=== PATIENT | male | born 1955 | race Caucasian/White ===

== ENCOUNTER → 2018-10-20 11:34 | Outpatient (CLI) | payer MEDICARE ==
--- NOTE | 2018-10-23 15:34 | ST ---
PATIENT:RADHA JORGENSEN MEDICAL RECORD: [id number] SEX: M LOCATION:[facility] ORDER #: ADMISSION DATE: 10/20/18 AGE OF PATIENT: 63 REFERRING PHYSICIAN: INTERPRETING PHYSICIAN: RADHA SHERMAN MD DATE OF SERVICE: 10/20/2018 PROCEDURE: Nuclear stress test. INDICATIONS: Angina, shortness of breath. He was exercised on standard Lexiscan protocol with 33 mCi of sestamibi injected at peak stress, 11 mCi were used previously for rest images. FINDINGS: Gated SPECT reveals preserved ejection fraction of 64% with decreased thickening and brightening throughout the inferior segments. SPECT imaging: Cardiolite was used as myocardial perfusion agent. There is fixed perfusion defect inferiorly and apically compatible with previous inferoapical myocardial infarction; however, there is reversible ischemia throughout the anterior segments. This includes the basal, mid, apical, anterior segments. The degree of reversibility is mild. The amount of myocardium involved between the 2 defects is very large. OVERALL IMPRESSION: This is a high risk abnormal nuclear stress test. Fixed perfusion defect inferiorly, fixed perfusion defect apically, reversible ischemia anteriorly suggestive of multivessel coronary artery disease. TRANSINT:[id number] Voice Confirmation ID: [id number] DOCUMENT ID: [id number] RADHA SHERMAN MD at 1534 CC: RYDER SINGH [id number] DICTATION DATE: 10/22/182158 REPAIRER WELDING EQUIPMENT: 10/23/18 0123 DEP CLI 10/20/18 [place] [id number] [place] [id number]
== END | disposition home or self-care (01) ==
LOC: D.HCCARDIO 10-19 12:30
PROVIDERS: ATTEND Internal Medicine Interventional Cardiology
DX: I20.9 Angina pectoris, unspecified (principal)

== ENCOUNTER 2018-11-04 09:31 | Outpatient (CLI) | payer MEDICARE ==
[~2018-11-04] VITALS: Ht 177.8 cm; Wt 97.7 kg
--- NOTE | ~2018-11-04 | HEMODYNAMI ---
PATIENT:ARDHA JORGENSEN MEDICAL RECORD: [id number] : 59 LOCATION:[facility] ADMISSION DATE: 11/04/18 Generatedon:11/04/201812:49 Patient name: RADHA JORGENSEN Patient #: [id number] SSN: : Date of study: 11/04/2018 Page: Of Hemodynamic Procedure Report Patient Data Patient Demographics Procedure consent was obtained First Name: RADHA Gender: Male Last Name: JOSLYN : 1955 Patient #: [id number] Age: 63 year(s) Race: Unknown Additional ID: [id number] Contact details [address]: [address] [place] [address] TRAIL State: [place] City: [place] Zip code: [address] Past Medical History Performed procedures and imaging results Date Procedure Procedure Results Comments Stress testing Positive->Intermediate with SPECT MPI risk Allergies: No known allergies Admission Admission Data Admission Date: 11/04/2018 Admission Time: 9:31 Arrival Date: 11/04/2018 Arrival Time: 0:00 Admit Source: Other Insurance Payor: Medicare [facility] #: [id number] Height (in.): 70 BSA: 2.16 (m2) Height (cm.): 177.8 BMI: 31 (kg/m2) Weight (lbs.): 216.05 Weight (kg.): 98 Lab Results Lab Result Date: 11/04/2018 Lab Result Time: 0:00 Biochemistry Name Units Result Min Max BUN mg/dl 17 --(---*)-- 7 18 Creatinine mg/dl 1 --(--*-)-- 0.6 1.3 eGFR ml/min 81 *-(----)-- 90 120 NONAFRICAN CBC Name Units Result Min Max Hematocrit % 46 --(-*--)-- 42 54 Hemoglobin g/dl 17.1 --(---*)-- 13.5 17.5 Procedure Procedure Types Cath Procedure Diagnostic Procedure LHC LHC w/Coronaries Procedure Description Procedure Date Procedure Date: 11/04/2018 Procedure Start Time: 12:33 Procedure End Time: 12:46 Procedure Staff Name Function Neri Alvarez MD Performing Physician Holli Caicedo RT Monitor Dawn Pak RT Scrub Bishnu Arambula RN Nurse Procedure Data Cath Procedure Fluoroscopy Diagnostic fluoroscopy Total fluoroscopy Time: 2.4 time: 2.4 min min Diagnostic fluoroscopy Total fluoroscopy dose: dose: 4776 mGy 4776 mGy Contrast Material Contrast Material Type Amount (ml) Isovue 300 76 Entry Location Entry Primary Successful Side Size Upsize Upsize Entry Closure [place] ccessful Closure Location (Fr) 1 (Fr) 2 (Fr) Remarks Device Remarks Radial Right 6 Fr Mechanical artery Short Compression Estimated blood loss: 5 ml Diagnostic catheters Device Type Used For End Catheter Placement DIAGNOSTIC [place] 110cm 5 Procedure Fr catheter ([id number]) DIAGNOSTIC AR2 MOD 5 Fr Procedure catheter ([id number]) Procedure Complications No complications Procedure Medications Medication Administration Route Dosage Oxygen etCO2 Nasal cannula 2 l/min Lidocaine 2% added to field 20 Heparin Flush Bag added to field 2 bags (1000units/500ml NS) Radial Cocktail I.A. 1 syringe (Verapamil 2mg/Nitro 400mcg/Heparin 1500units) Versed I.V. 2 mg Versed I.V. 2 mg Fentanyl I.V. 100 mcg Fentanyl I.V. 100 mcg Hemodynamics Rest BSA: 2.16 (m2) O2 Consumption: Estimated: 255.93 (ml/min) O2 Consumption indexed : Estimated:118.49 (ml/min/m) Heart Rate: 73 (bpm) Snapshots Pre Cath Intra NCS Post Cath Vital Signs Time Heart Resp SPO2 etCO2 NIBP (mmHg) Rhythm Pain Sedation Rate (ipm) (%) (mmHg) Status Level (bpm) 12:22:32 76 20 92 0 131/82(103) NSR 0 (11) 10(A) , No pain 12:26:52 72 16 93 34.3 126/79(99) NSR 0 (11) 10(A) , No pain 12:31:10 79 15 94 42.6 128/79(106) NSR 0 (11) 10(A) , No pain 12:37:19 89 29 94 37.3 131/94(104) NSR 0 (11) 9(A) , No pain 12:41:37 87 12 96 46.2 125/74(99) NSR 0 (11) 9(A) , No pain 12:46:03 87 13 94 29.1 132/82(109) NSR 0 (11) 10(A) , No pain Medications Time Medication Route Dose Verified Delivered Reason Notes Effectiveness by by 12:21:03 Oxygen etCO2 2 l/min Neri Goetz used for Nasal Antonio Arambula RN procedure cannula 12:21:09 Lidocaine 2% added 20ml Neri Hernandezie used for to vial Antonio Arambula RN procedure field 12:21:16 Heparin Flush added 2 bags Neri Goetz used for Bag to Antonio Arambula RN procedure (1000units/500ml field NS) 12:21:24 Radial Cocktail I.A. 1 Neri He for (Verapamil syringe Antonio Alvarez MD vasodilation 2mg/Nitro 400mcg/Heparin 1500units) 12:33:04 Versed I.V. 2 mg Neri Goetz for sedation Antonio Arambula RN 12:33:11 Fentanyl I.V. 100 mcg Neri Goetz for sedation Antonio Arambula RN 12:38:05 Versed I.V. 2 mg Neri Goetz for sedation Antonio Arambula RN 12:38:12 Fentanyl I.V. 100 mcg Neri Goetz for sedation Antonio Arambula RN Procedure Log Time Note 12:02:25 Procedure Status Elective Heart Cath (OP). 12:02:32 Bishnu Arambula RN sent for patient. Start room use. 12:02:35 Time tracking: Regular hours (M-F 7:00 - 5:00) 12:02:43 Plan of Care:Hemodynamics will remain stable., Cardiac rhythm will remain stable., Comfort level will be maintained., Respiratory function will remain adequate., Patient/ family verbilizes understanding of procedure., Procedure tolerated without complication., Recovers from procedure without complications.. 12:02:51 Signed procedure consent form obtained from patient. 12:03:22 Patient allergic to No known allergies 12:05:06 Patient Weight : 216.05 lbs 12:05:23 Patient Height : 70 inches 12:05:53 Arrival Date: 11/04/2018 12:00:00 AM 12:06:04 Insurance Payor : Medicare 12:06:27 Admit Source: Other 12:10:46 Lab Result : BUN 17 mg/dl 12:10:46 Lab Result : Hemoglobin 17.1 g/dl 12::46 Lab Result : Hematocrit 46 % 12:10:46 Lab Result : Creatinine 1 mg/dl 12::46 Lab Result : eGFR NONAFRICAN 81 ml/min 12:12:51 Patient received from Pre/Post Procedure Room to CCL 1 Alert and oriented. Tansferred to table in Supine position. 12:12:55 Warm blankets applied, and julia hugger turned on for patient comfort. 12:12:57 Correct patient and procedure confirmed by team. 12:12:59 ECG and BP/O2 sat monitors applied to patient. 12:13:43 H&P Date Dictated: 10/14/2018 Within 30 days and on chart., H&P Addendum completed by physician on day of procedure. (MUST COMPLETE FOR ALL OUTPATIENTS). 12:21:03 Oxygen 2 l/min etCO2 Nasal cannula was administered by Bishnu Arambula RN; used for procedure; Verbal order read back and verified. 12:21:09 Lidocaine 2% 20ml vial added to field was administered by Bishnu Arambula RN; used for procedure; Verbal order read back and verified. 12:21:16 Heparin Flush Bag (1000units/500ml NS) 2 bags added to field was administered by Bishnu Arambula RN; used for procedure; Verbal order read back and verified. 12:21:24 Radial Cocktail (Verapamil 2mg/Nitro 400mcg/Heparin 1500units) 1 syringe I.A. was administered by Neri Alvarez MD; for vasodilation; Verbal order read back and verified. 12:21:27 Vital chart was started 12:22:04 Baseline sample Acquired. 12:22:07 Rhythm: sinus rhythm 12:22:09 Full Disclosure recording started 12:22:10 Pre-procedure instructions explained to patient. 12:22:10 Pre-op teaching completed and patient verbalized understanding. 12:22:12 Family in waiting room. 12:22:16 Patient NPO since Midnight. 12:22:26 Is patient on blood thinner?No 12:22:28 Patient diabetic? No. 12:22:34 Previous problem with sedation/anesthesia? No ? 12:22:36 Snore? Yes 12:22:37 Sleep apnea? No 12:22:38 Deviated septum? No 12:22:39 Opens mouth fully? Yes 12:22:40 Sticks out tongue? Yes 12:22:49 Airway obstruction? Yes COPD 12:22:51 Dentures? No ? 12:22:55 Pre procedure: right dorsailis pedis pulse 1+ Palpable, but thready & weak; easily obliterated 12:22:58 Modified Kenny's test Ulnar < 7 seconds 12:23:00 Patient pain scale 0/10 ?. 12:23:09 IV patent on arrival in left hand with 0.9% NaCl at [facility]. 12:23:12 Lab results completed and on chart. 12:23:15 Right Radial & Right Groin area was prepped with chlora-prep and draped in sterile fashion 12:23:16 Alarms reviewed by R. N. 12:23:17 Sharps counted by scrub and verified by R.N. 12:23:20 Use device set Radial Dx or PCI 12:23:21 ACIST Syringe (72948) opened to sterile field. 12:23:24 Bag Decanter (2002S) opened to sterile field. 12:23:24 ACIST Hand Control (43094) opened to sterile field. 12:23:24 ACIST Manifold (10278) opened to sterile field. 12:23:25 Tegaderm 4 x 4 (1626W) opened to sterile field. 12:23:26 Medline Cath Pack ([id number]) opened to sterile field. 12:23:27 MBrace Wrist Support ([id number]) opened to sterile field. 12:23:31 EMERALD Guide Wire (021-370) opened to sterile field. 12:23:31 SHEATH 6FR RAIN (1267406) opened to sterile field. 12:32:03 --------ALL STOP TIME OUT------ 12:32:04 Final Timeout: patient, procedure, and site verified with staff and physician. All members of the team are in agreement. 12:32:06 Right Radial & Right Groin site verified by team. 12:32:09 Fire Safety Assessment: A--An alcohol-based skin anteseptic being used preoperatively., C--Open oxygen or nitrous oxide is being used., D--An ESU, laser, or fiber-optic light is being used. 12:32:12 Physical assessment completed. ASA score P 2 - A patient with mild systemic disease as per Neri Alvarez MD. 12:32:18 2) 60-89 Mildly reduced kidney function, and other findings (as for stage 1) point to kidney disease. 12:32:21 Sedation plan: IV Moderate Sedation Medication:Versed, Fentanyl 12:32:31 Maximum allowable contrast dose (3.7 X eGFR X 0.75)225 ml. 12:32:45 Zero performed for pressure channel P1 12:33:04 Versed 2 mg I.V. was administered by Bishnu Arambula RN; for sedation; Verbal order read back and verified. 12:33:08 Procedure started. 12:33:11 Fentanyl 100 mcg I.V. was administered by Bishnu Arambula RN; for sedation; Verbal order read back and verified. 12:33:56 Local anesthetic to right radial artery with Lidocaine 2% by Neri Alvarez MD.INITIAL ACCESS ONLY 12:34:59 A 6 Fr Short sheath was inserted into the Right Radial artery 12:36:58 A DIAGNOSTIC [place] 110cm 5 Fr catheter (167228) was advanced over the wire and used for Procedure. 12:37:39 LV gram done using THOMAS 12:37:46 Injector settings: Ml/sec: 5, Volume: 15, 12:38:05 Versed 2 mg I.V. was administered by Bishnu Arambula RN; for sedation; Verbal order read back and verified. 12:38:08 EF : 60 % 12:38:12 Fentanyl 100 mcg I.V. was administered by Bishnu Arambula RN; for sedation; Verbal order read back and verified. 12:39:08 LCA angiography performed. 12:40:38 Catheter exchanged over wire. 12:40:49 UNABLE TO ENGAGE RCA 12:41:14 A DIAGNOSTIC AR2 MOD 5 Fr catheter ([id number]) was advanced over the wire and used for Procedure. 12:41:33 RCA angiography performed. 12:41:35 Catheter removed. 12:41:45 Procedure ended.(Physican Out) 12:41:52 ZEPHYR REGULAR TR BAND (614478) opened to sterile field. 12:42:08 Fluoroscopy time 02.40 minutes. 12:42:17 Fluoroscopy dose: 4776 mGy 12:42:17 Flurop Dose total: 4776 12:42:34 Dose Area Product 77246 mGy/cm. 12:42:38 Contrast amount:Isovue 300 76ml. 12:42:41 Maximum allowable dose exceeded? No. 12:42:41 Sharps counted by scrub and verified by R.N. 12:42:50 Sheath removed intact; hemostasis achieved with Mechanical Compression to the Right Radial artery. 12:43:30 Kennedy band inflated with 10cc of air. 12:43:32 Insertion/operative site no bleeding no hematoma. 12:43:35 Post-procedure physical assessment completed. ASA score P 2 - A patient with mild systemic disease as per Neri Alvarez MD. 12:43:37 Post procedure rhythm: sinus rhythm 12:43:40 Estimated blood loss: 5 ml 12:43:43 Post procedure instruction explained to patient.Patient verbalizes understanding. 12:43:44 Patient needs reinforcement of post procedure teaching. 12:45:45 Procedure and supply charges have been captured, reviewed, submitted and are correct. 12:45:48 Procedure Complication : No complications 12:45:55 Vital chart was stopped 12:45:56 See physician's report for complete and final results. 12:45:58 Report given to Pre/Post Procedure Room. 12:46:31 Patient transfered to Pre/Post Procedure Room with Bed. 12:46:33 Procedure ended. 12:46:33 Full Disclosure recording stopped 12:46:37 End room use (Document Last) 12:48:08 End room use (Document Last) Device Usage Item Name Manufacture Quantity Catalog Hospital Part Current Minima l Lot# / Number Charge Number Stock Stock Serial# Code ACIST Acist 1 19430 390732 830754 745310 20 Syringe Medical (06929) Systems Inc Bag Microtek 1 724417 72953 196749 5 Decanter Medical Inc. () ACIST Hand Acist 1 48558 751922 985169 243442 5 Control Medical (58449) Systems Inc ACIST Acist 1 88000 167178 158347 070943 5 Manifold Medical (66665) Systems Inc Tegaderm 4 3M 1 1626W 574606 553894 920548 5 x 4 (1626W) Medline Medline 1 [id number] 072672 13757 812160 5 Cath Pack ([id number]) MBrace Advanced 1 140-0250-00 881365 76509 380135 5 Wrist Vascular Support Dynamics ([id number]) EMERALD Cardinal 1 502-455 748746 892198 742132 5 Guide Wire Health (502455) SHEATH 6FR Cardinal 1 6870083 616596 7925116 981731 5 [facility] Health (9089950) DIAGNOSTIC Terumo 1 40-5013 912221 601251 349269 5 [place] 110cm 5 Fr catheter (603245) DIAGNOSTIC Cardinal 1 [id number] 127966 532649 633354 20 AR2 MOD 5 Health Fr catheter (398334G) ZEPHYR Cardinal 1 973384 878499 7774654 187222 5 REGULAR TR Health BAND (643318) Signature Audit [place] Stage Time Signature Unsigned Intra-Procedure 11/04/2018 Holli Caicedo 12:48:08 PM RT(R) Intra-Procedure 11/04/2018 Bishnu Arambula RN 12:48:35 PM Intra-Procedure 11/04/2018 Neri Alvarez 12:49:00 PM [place] [id number] [place] [address]
[2018-11-04] MEDS ORDERED: OMEPRAZOLE20 M1 PO (10:01)
[2018-11-04] MEDS ORDERED: CYCLOBENZAPRINE10 MG PO (10:02)
[2018-11-04] MEDS ORDERED: MOBIC7.5 MG PO (10:02)
[2018-11-04] MEDS ORDERED: GLUCOSAMINE HC500 MG PO (10:03)
[2018-11-04] MEDS ORDERED: MULTI-DAY VITAM1 TAB PO (10:03)
[2018-11-04] MEDS ORDERED: DULERA 200 MCG8.8 GM INH (10:03)
[2018-11-04 10:10] VITALS: BP 128/80; Ht 177.8 cm; Wt 97.7 kg
[2018-11-04 10:11] LABS: BASOPHILS 0.6 % (0-2); EOSINOPHILS 3.2 % (0-7); HEMOGLOBIN 17.1 g/dL (13.5-17.5); IMMATURE GRANULOCYTES 0.2 % (0-5); LYMPHOCYTES 30.6 % (15-50); MCH 36.1 pg (26.0-34.0); MCHC 37.2 g/dL (31.0-37.0); MEAN PLATELET VOLUME 10.9 fL (7.4-10.4); MONOCYTES 9.4 % (2-11); PLATELET COUNT 185 10x3/uL (130-400); RBC 4.74 10x6/uL (4.20-6.10); RDW 13.1 % (11.5-14.5); WBC 5.3 10x3/uL (4.8-10.8)
[2018-11-04 10:19] LABS: CALC OSMOLALITY 281 mosm/kg (275-300); CALCIUM 9.1 mg/dL (8.5-10.1); CARBON DIOXIDE 28.8 mmol/L (21.0-32.0); CHLORIDE - SERUM 105 mmol/L (98-107); GLUCOSE 108 mg/dL (74-106); POTASSIUM - SERUM 4.5 mmol/L (3.5-5.1); SODIUM 140 mmol/L (136-145); UREA NITROGEN 17 mg/dL (7-18); eGFR NON AFRICAN AMERICAN 81 mL/min (90-120)
[2018-11-04 10:28] LABS: CHOL - HDL RATIO 3.9 ratio (2.3-4.9); LDL-HDL RATIO 2.3 ratio (1.5-3.5)
--- NOTE | 2018-11-04 12:55 | NUR ---
PATIENT ARRIVED TO ROOM 9, PLACED ON CM. VSS. RIGHT Z BAND IN PLACE, NO S/S OF BLEEDING OR HEMATOMA.
--- NOTE | 2018-11-04 13:10 | NUR ---
PATIENT RESTING, VSS ON 2L NC. RIGHT Z BAND IN PLACE, NO S/S OF BLEEDING OR HEMATOMA. PATIENT DENIES ANY C/O PAIN, NUMBNESS, OR TINGLING.
--- NOTE | 2018-11-04 13:40 | NUR ---
4CC OF AIR REMOVED FROM TR BAND, NO S/S OF BLEEDING OR HEMATOMA. NO C/O PAIN, NUMBNESS, OR TINGLING. VSS ON ROOM AIR. NO N/V.
--- NOTE | 2018-11-04 14:10 | NUR ---
REMAINING AIR REMOVED FROM Z BAND, NO S/S OF BLEEDING OR HEMATOMA. DRESSING APPLIED IS CDI. VSS ON ROOM AIR. NO C/O PAIN, NUMBNESS, OR TINGLING.
--- NOTE | 2018-11-04 14:25 | NUR ---
EDUCATION REGARDING DISCHARGE INSTRUCTIONS GIVEN TO PATIENT AND FAMILY, BOTH VERBALIZE UNDERSTANDING. VSS ON ROOM AIR. RIGHT RADIAL DRESSING IS CDI, NO S/S OF BLEEDING OR HEMATOMA. IV REMOVED. PATIENT TAKEN OFF OF MONITORS TO GET DRESSED.
--- NOTE | 2018-11-04 14:30 | NUR ---
PATIENT TRANSPORTED VIA WHEELCHAIR TO CAR WITH FAMILY DRIVING, ALL BELONGINGS WITH PATIENT.
--- NOTE | 2018-11-05 09:14 | OP ---
PATIENT NAME: RADHA JORGENSEN MEDICAL RECORD: [id number] :59 LOCATION:D.CAT ADMISSION DATE: SURGEON: RADHA SHERMAN MD DATE OF OPERATION: 11/04/2018 PROCEDURES: 1. Left heart catheterization. 2. Selective coronary angiography. 3. Left ventriculogram. INDICATIONS: Angina, abnormal nuclear stress test. DESCRIPTION OF PROCEDURE IN DETAIL: After informed consent was obtained and after a detailed description of risks, benefits as well as alternative therapies, the patient elected to proceed with angiogram and heart catheterization. The right radial area was prepped and draped in normal sterile fashion. Right radial artery was cannulated via modified Seldinger technique with placement of 5-[place] sheath. All catheters exchanged through this sheath. FINDINGS: Left ventriculogram was performed in standard 30-degree THOMAS view, reveals good cardiac wall motion, ejection fraction is 60%. SELECTIVE CORONARY ANGIOGRAPHY: Left main, left anterior descending, left circumflex, right coronary artery are all smooth-walled vessels with no angiographic evidence of coronary artery disease. OVERALL IMPRESSION: 1. No angiographic evidence of coronary artery disease. 2. Normal left heart pressures. 3. Normal left ventricular systolic function. TRANSINT:[id number] Voice Confirmation ID: [id number] DOCUMENT ID: [id number] RADHA SHERMAN MD at 0914 CC: [id number] DICTATION DATE: 11/04/18 1248 WELDER EXPLOSION: 11/04/182121 DEP CLI 11/04/18 [place] [id number]
== END 2018-11-04 14:30 ==
LOC: D.CATH 09:31
PROVIDERS: ATTEND Internal Medicine Interventional Cardiology
DX: R94.30 Abnormal result of cardiovascular function study, unspecified (principal); I20.9 Angina pectoris, unspecified